=== PATIENT | male | born 1955 | race Hispanic/Latino ===

== ENCOUNTER → 2020-01-27 | Outpatient (CLI) | payer MEDICARE | LOC: WCC 15:43 | PROVIDERS: ATTEND Internal Medicine Infectious Disease | DX: L89.154 Pressure ulcer of sacral region, stage 4 (principal); E11.65 Type 2 diabetes mellitus with hyperglycemia; I87.2 Venous insufficiency (chronic) (peripheral); I10 Essential (primary) hypertension; G47.33 Obstructive sleep apnea (adult) (pediatric); E78.2 Mixed hyperlipidemia; Z74.01 Bed confinement status ==

== ENCOUNTER 2020-02-03 14:16 | Outpatient (RCR) | payer BC, MEDICARE ==
[~2020-02-03 14:16] MED LIST: LIDOCAINE VISC 2% SOLN 15 ML UDC ONE
== END 2020-02-08 ==
LOC: WCC 14:16
PROVIDERS: ATTEND Internal Medicine Infectious Disease
DX: L89.154 Pressure ulcer of sacral region, stage 4 (principal); E11.65 Type 2 diabetes mellitus with hyperglycemia; I87.2 Venous insufficiency (chronic) (peripheral); I10 Essential (primary) hypertension; E78.2 Mixed hyperlipidemia; G47.33 Obstructive sleep apnea (adult) (pediatric); Z74.01 Bed confinement status

== ENCOUNTER 2020-03-02 15:34 | Outpatient (RCR) | payer MEDICARE ==
[~2020-03-02 15:34] MED LIST changes: +LIDOCAINE/PRILOCAINE 2.5-2.5% KIT ONE
== END 2020-03-09 ==
LOC: WCC 15:34
PROVIDERS: ATTEND Internal Medicine Infectious Disease
DX: L89.154 Pressure ulcer of sacral region, stage 4 (principal); E11.65 Type 2 diabetes mellitus with hyperglycemia; I87.2 Venous insufficiency (chronic) (peripheral); I10 Essential (primary) hypertension; G47.33 Obstructive sleep apnea (adult) (pediatric); E78.2 Mixed hyperlipidemia; Z74.01 Bed confinement status
CPT/HCPCS: 36415; 82948

== ENCOUNTER 2020-03-23 13:37 | Outpatient (RCR) | payer MEDICARE ==
[~2020-03-23 13:37] MED LIST changes: +COLLAGENASE OINTMENT 30 GM TUBE ONE; -LIDOCAINE VISC 2% SOLN 15 ML UDC ONE
== END 2020-04-09 ==
LOC: WCC 13:37
PROVIDERS: ATTEND Internal Medicine Infectious Disease
DX: L89.154 Pressure ulcer of sacral region, stage 4 (principal); E11.65 Type 2 diabetes mellitus with hyperglycemia; I87.2 Venous insufficiency (chronic) (peripheral); I10 Essential (primary) hypertension; G47.33 Obstructive sleep apnea (adult) (pediatric); E78.2 Mixed hyperlipidemia; Z74.01 Bed confinement status

== ENCOUNTER 2020-05-08 15:29 | Outpatient (RCR) | payer MEDICARE, BC ==
[~2020-05-08 15:29] MED LIST changes: -LIDOCAINE/PRILOCAINE 2.5-2.5% KIT ONE
== END 2020-05-10 ==
LOC: WCC 15:29
PROVIDERS: ATTEND Internal Medicine Infectious Disease
DX: L89.154 Pressure ulcer of sacral region, stage 4 (principal); E11.65 Type 2 diabetes mellitus with hyperglycemia; I87.2 Venous insufficiency (chronic) (peripheral); I10 Essential (primary) hypertension; G47.33 Obstructive sleep apnea (adult) (pediatric); E78.2 Mixed hyperlipidemia; Z74.01 Bed confinement status

== ENCOUNTER 2020-05-15 15:32 | Outpatient (RCR) | payer MEDICARE, BC | END 2020-06-07 | LOC: WCC 15:32 | PROVIDERS: ATTEND Internal Medicine Infectious Disease | DX: E11.65 Type 2 diabetes mellitus with hyperglycemia (principal); L89.154 Pressure ulcer of sacral region, stage 4; I87.2 Venous insufficiency (chronic) (peripheral); I10 Essential (primary) hypertension; E78.2 Mixed hyperlipidemia; G47.33 Obstructive sleep apnea (adult) (pediatric); Z74.01 Bed confinement status ==

== ENCOUNTER → 2021-12-08 | Outpatient (RCR) | payer MEDICARE, BC | LOC: PT 11-26 10:53 | PROVIDERS: ATTEND Specialist | DX: M54.31 Sciatica, right side (principal) ==

== ENCOUNTER → 2022-01-07 | Outpatient (RCR) | payer MEDICARE, BC | LOC: PT 12-10 07:09 | PROVIDERS: ATTEND Specialist | DX: M54.31 Sciatica, right side (principal) ==

== ENCOUNTER 2022-01-10 06:49 | Outpatient (RCR) | payer MEDICARE, BC | END 2022-02-07 | LOC: PT 06:49 | PROVIDERS: ATTEND Specialist | DX: M54.31 Sciatica, right side (principal) ==